=== PATIENT | male | born 1990 | race Caucasian/White ===

== ENCOUNTER 2018-03-29 21:49 | Emergency (ER) | payer MEDICAID, SELFPAY ==
[2018-03-29] MEDS ORDERED: Ibuprofen 800 MG TAB ONE (22:08)
[2018-03-29] MEDS ORDERED: HYDROcodone/Acetaminophen 5/325 mg Tablet ONE (22:08)
== END 2018-03-29 22:26 | disposition home or self-care (01) ==
LOC: BURERS 21:49
DX: L55.0 Sunburn of first degree (principal); F41.9 Anxiety disorder, unspecified; F17.210 Nicotine dependence, cigarettes, uncomplicated
CPT/HCPCS: 99282

== ENCOUNTER 2018-06-27 09:33 | Emergency (ER) | payer BC, SELFPAY | END 2018-06-27 10:02 | disposition home or self-care (01) | LOC: BURERS 09:33 | DX: R07.89 Other chest pain (principal); F17.210 Nicotine dependence, cigarettes, uncomplicated; F41.9 Anxiety disorder, unspecified; Z71.6 Tobacco abuse counseling | CPT/HCPCS: 99406 ==

== ENCOUNTER 2018-10-02 13:24 | Emergency (ER) | payer BC ==
[2018-10-02] MEDS ORDERED: Ketorolac Tromethamine 60 MG/2 ML VIAL ONE (13:36)
--- NOTE | 2018-10-02 14:56 | RAD ---
LEFT RIBS WITH PA CHEST: Date: 10/02/18 No rib fracture was appreciated. The heart was normal in size and the lungs were clear. No infiltrate , effusion, or pneumothorax was evident. Mediastinum appeared normal. There was some mild thoracolumb ar scoliosis convex right. IMPRESSION: No acute thoracic findings. POS: HOME
== END 2018-10-02 14:05 | disposition home or self-care (01) ==
LOC: BURERS 13:24
DX: S20.212A Contusion of left front wall of thorax, initial encounter (principal); F17.200 Nicotine dependence, unspecified, uncomplicated; W20.8XXA Other cause of strike by thrown, projected or falling object, initial encounter
CPT/HCPCS: 96372; J1885

== ENCOUNTER 2019-07-16 15:53 | Emergency (ER) | payer BC, SELFPAY ==
--- NOTE | 2019-07-16 16:56 | RAD ---
LEFT RIBS WITH PA CHEST: 07/16/19 The heart is normal in size and the lungs are clear. No infiltrate, effusion, or pneumothorax was see n. The ribs all appeared intact. No fractures were appreciated at this time. IMPRESSION: No significant finding. POS: HOME
[2019-07-16] MEDS ORDERED: Ketorolac Tromethamine 60 MG/2 ML VIAL ONE (17:00)
== END 2019-07-16 17:24 | disposition home or self-care (01) ==
LOC: BURERS 15:53
DX: S20.212A Contusion of left front wall of thorax, initial encounter (principal); F17.210 Nicotine dependence, cigarettes, uncomplicated; Y04.0XXA Assault by unarmed brawl or fight, initial encounter
CPT/HCPCS: 96372; 99406; J1885

== ENCOUNTER 2019-07-19 17:22 | Emergency (ER) | payer SELFPAY ==
--- NOTE | 2019-07-19 19:58 | RAD ---
LEFT RIBS: 07/19/2019 COMPARISON: 07/16/2019 FINDINGS: In the interval, a patchy infiltrate has appeared in the left lower lobe. I do not detect any rib fr actures, pleural effusions, or signs of pneumothorax. The remainder of the left lung is clear and fu lly inflated. The heart size is normal. The visible portions of the right lung are clear. IMPRESSION: Interval development of a left lower lobe infiltrate. Pneumonia or a contusion would seem most likel y. This finding was not present on the 07/16/2019 study. CODE T POS: HOME
== END 2019-07-19 18:44 | disposition home or self-care (01) ==
LOC: BURERS 17:22
DX: S20.212A Contusion of left front wall of thorax, initial encounter (principal); F17.210 Nicotine dependence, cigarettes, uncomplicated; X50.0XXA Overexertion from strenuous movement or load, initial encounter
CPT/HCPCS: 99281

== ENCOUNTER 2019-10-20 08:56 | Emergency (ER) | payer SELFPAY | END 2019-10-20 09:14 | disposition home or self-care (01) | LOC: BURERS 08:56 | DX: J06.9 Acute upper respiratory infection, unspecified (principal); F17.210 Nicotine dependence, cigarettes, uncomplicated | CPT/HCPCS: 99281 ==